=== PATIENT | female | born 1975 | race Caucasian/White ===

== ENCOUNTER 2016-07-12 08:39 | Emergency (ER) | payer BC ==
[2016-07-12] MEDS ORDERED: NS 500 ML IV ONE (08:45)
[2016-07-12] MEDS ORDERED: PANTOPRAZOLE SODIUM 80 MG in NS 100 ML IV ONE (08:46)
[2016-07-12 08:50] VITALS: O2SAT 100
--- NOTE | 2016-07-12 09:06 | EDPHY ---
H & P Time Seen by Provider: 07/12/16 08:46 HPI/ROS: HPI Black stools. Abdominal pain. 40-year-old female by private vehicle with her . This patient reports that she has had intermittent upper abdominal epigastric discomfort ongoing since April. Reports that she has had blackish stools intermittently for months. She has been working with homeopathic physician to try and figure out the source of her rectal bleeding. 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 She did have a endoscopy and colonoscopy about 2 years ago. No intervention since then. She is not coagulopathic. She is not on any anticoagulation or antiplatelet agents. She reports black stools last night and this morning. She does have a history of being treated for H pylori peptic ulcer disease years ago. ROS: Constitutional: No fever, no chills. No weakness. Eyes: No discharge. No changes in vision. ENT: No sore throat. No nasal congestion or rhinorrhea. Respiratory: No cough. No shortness of breath. Cardiac: No chest pain, no palpitations. Gastrointestinal: No abdominal pain, no vomiting, no diarrhea. Genitourinary: No hematuria. No dysuria or increased frequency with urination. Musculoskeletal: No back pain. No neck pain. No myalgias or arthralgias. Skin: No rashes. Neurological: No headache. No focal weakness or altered sensation. Past medical history: As above. Social history: Here with her . No alcohol. No smoking. Physical Exam: General Appearance: Alert, no distress. This patient is responding to questions appropriately and in full sentences. This patient appears well- hydrated and well-nourished. Eyes: Pupils equal and round no pallor or injection. No lid edema, erythema or injection. ENT, Mouth: Mucous membranes are moist. The pharyngeal tissues are unremarkable. No edema or swelling. No asymmetry suggestive of abscess. No erythema or exudates. Respiratory: There are no retractions, lungs are clear to auscultation with good air movement bilaterally. Cardiovascular: Regular rate and rhythm. No murmur. Gastrointestinal: Abdomen is soft with mild upper abdominal tenderness on palpation, no masses, bowel sounds normal. No focal tenderness at McBurney's point. No Mandel sign. Rectal exam: Normal tone. No bleeding fissures or hemorrhoids. Minimal dark brown stool in the rectal vault. No active hemorrhage. Stool sent for Hemoccult testing. Neurological: Motor sensory function is grossly intact. Cranial nerves are normal. Gait is normal. Skin: Warm and dry, no rashes. Musculoskeletal: Neck is supple and nontender. Extremities are symmetrical. All joints range without pain or impingement. Psychiatric: No agitation. No depression. Database: EKG: Imaging: Procedures: Emergency department course: IV placed. She was put on a cardiac cath rn. Vital signs reviewed. She was started on IV normal saline with 500 cc to be given over the next hour. I discussed given her IV Protonix. She has declined this medication initially. Appropriate blood work sent. 10:20 a.m., patient re-evaluated. Resting comfortably at this time. Results of blood work discussed with her and her . Her vital signs have been reviewed and are normal. Repeat abdominal exam she is soft, nontender and nondistended. She feels comfortable going home and I feel she is safe for discharge. I did discuss putting her on a proton pump inhibitor. She declines this medication. Plan will be to have her follow up with Gastroenterology for re-evaluation and likely an endoscopy, colonoscopy. She is in agreement with this plan. Return to emergency department precautions were thoroughly reviewed with her. All of her questions were answered. She was discharged in good condition. Hemoccult feces-negative. Differential Diagnosis: The differential diagnosis on this patient includes but is not limited to to upper versus lower gastrointestinal bleeding, peptic ulcer disease, diverticulosis, colonic polyps, coagulopathy. This represents a partial list of diagnoses considered. These considerations are based on history, physical exam, past history, reassessment and diagnostic testing. Constitutional: Initial Vital Signs Temperature (C) 36.7 C 07/12/16 08:41 Heart Rate 89 07/12/16 08:41 Respiratory Rate 07/12/16 08:41 Blood Pressure 122/65 H 07/12/16 08:41 O2 Sat (%) 100 07/12/16 08:41 O2 Delivery Mode Room Air Allergies/Adverse Reactions: antibiotics Allergy (Uncoded 07/12/16 08:53) dairy Allergy (Uncoded 07/12/16 08:54) wheat Allergy (Uncoded 07/12/16 08:54) Home Medications: Medication Instructions Recorded Herbals/Supplements -Info Only 07/12/16 Medical Decision Making - Data Points Laboratory Results: Laboratory Results 07/12/16 08:55 07/12/16 08:55 07/12/16 07/12/16 07/12/16 08:55 08:55 08:55 WBC RBC Hgb Hct MCV MCH MCHC RDW Plt Count MPV Neut % (Auto) Lymph % (Auto) [place] % (Auto) Eos % (Auto) Baso % (Auto) Nucleat RBC Rel Count Absolute Neuts (auto) Absolute Lymphs (auto) Absolute Monos (auto) Absolute Eos (auto) Absolute Basos (auto) Absolute Nucleated RBC Immature Gran % Immature Gran # PT INR APTT Sodium Potassium Chloride Carbon Dioxide Anion Gap BUN Creatinine Estimated GFR Glucose Calcium Total Bilirubin Conjugated Bilirubin Unconjugated Bilirubin AST ALT Alkaline Phosphatase Total Protein Albumin Lipase Beta HCG, Qual Stool Occult Bld Scrn NEGATIVE (NEGATIVE) H. pylori IgG Antibody NEGATIVE (NEG) Patient ABO/Rh A POSITIVE Antibody Screen NEGATIVE 07/12/16 07/12/16 07/12/16 08:55 08:55 08:55 WBC RBC Hgb Hct MCV MCH MCHC RDW Plt Count MPV Neut % (Auto) Lymph % (Auto) [place] % (Auto) Eos % (Auto) Baso % (Auto) Nucleat RBC Rel Count Absolute Neuts (auto) Absolute Lymphs (auto) Absolute Monos (auto) Absolute Eos (auto) Absolute Basos (auto) Absolute Nucleated RBC Immature Gran % Immature Gran # PT 13.7 SEC SEC (12.0-15.0) INR 1.06 (0.83-1.16) APTT 31.0 SEC SEC (23.0-38.0) Sodium 139 mEq/L mEq/L (134-144) Potassium 3.9 mEq/L mEq/L (3.5-5.2) Chloride 102 mEq/L mEq/L (97-110) Carbon Dioxide 22 mEq/l mEq/l (22-31) Anion Gap 15 mEq/L mEq/L (8-16) BUN 10 mg/dL mg/dL (7-23) Creatinine 0.7 mg/dL mg/dL (0.6-1.0) Estimated GFR > 60 Glucose 70 mg/dL mg/dL (70-100) Calcium 9.5 mg/dL mg/dL (8.5-10.4) Total Bilirubin 1.1 mg/dL mg/dL (0.1-1.4) Conjugated Bilirubin 0.5 mg/dL mg/dL (0.0-0.5) Unconjugated Bilirubin 0.6 mg/dL mg/dL (0.0-1.1) AST 21 IU/L IU/L (14-46) ALT 34 IU/L IU/L (9-52) Alkaline Phosphatase 80 IU/L IU/L (38-126) Total Protein 7.6 g/dL g/dL (6.3-8.2) Albumin 4.7 g/dL g/dL (3.5-5.0) Lipase 117.0 IU/L IU/L (23-300) Beta HCG, Qual NEGATIVE Stool Occult Bld Scrn H. pylori IgG Antibody Patient ABO/Rh Antibody Screen 07/12/16 08:55 WBC 4.26 10^3/uL 10^3/uL (3.80-9.50) RBC 5.04 10^6/uL 10^6/uL (4.18-5.33) Hgb 13.6 g/dL g/dL (12.6-16.3) Hct 42.2 % % (38.0-47.0) MCV 83.7 fL fL (81.5-99.8) MCH 27.0 pg L pg (27.9-34.1) MCHC 32.2 g/dL L g/dL (32.4-36.7) RDW 13.2 % % (11.5-15.2) Plt Count 271 10^3/uL 10^3/uL (150-400) MPV 11.1 fL fL (8.7-11.7) Neut % (Auto) 41.7 % % (39.3-74.2) Lymph % (Auto) 39.0 % % (15.0-45.0) [place] % (Auto) 8.5 % % (4.5-13.0) Eos % (Auto) 9.9 % H % (0.6-7.6) Baso % (Auto) 0.7 % % (0.3-1.7) Nucleat RBC Rel Count 0.0 % % (0.0-0.2) Absolute Neuts (auto) 1.78 10^3/uL 10^3/uL (1.70-6.50) Absolute Lymphs (auto) 1.66 10^3/uL 10^3/uL (1.00-3.00) Absolute Monos (auto) 0.36 10^3/uL 10^3/uL (0.30-0.80) Absolute Eos (auto) 0.42 10^3/uL H 10^3/uL (0.03-0.40) Absolute Basos (auto) 0.03 10^3/uL 10^3/uL (0.02-0.10) Absolute Nucleated RBC 0.00 10^3/uL 10^3/uL (0-0.01) Immature Gran % 0.2 % % (0.0-1.1) Immature Gran # 0.01 10^3/uL 10^3/uL (0.00-0.10) PT INR APTT Sodium Potassium Chloride Carbon Dioxide Anion Gap BUN Creatinine Estimated GFR Glucose Calcium Total Bilirubin Conjugated Bilirubin Unconjugated Bilirubin AST ALT Alkaline Phosphatase Total Protein Albumin Lipase Beta HCG, Qual Stool Occult Bld Scrn H. pylori IgG Antibody Patient ABO/Rh Antibody Screen Medications Given: Discontinued Medications Sodium Chloride (Ns) 500 mls @ 0 mls/hr IV ONCE ONE PRN Reason: Wide Open Stop: 07/12/16 08:46 Last Admin: 07/12/16 09:08 Dose: 500 mls Pantoprazole Sodium 80 mg/ (Sodium Chloride) 100 mls @ 200 mls/hr IV EDNOW ONE Stop: 07/12/16 09:15 Last Admin: 07/12/16 10:11 Dose: Not Given Departure - Departure Disposition: Home, Routine, Self-Care Clinical Impression: Dark stools, Abdominal pain Condition: Good Instructions: Chronic Abdominal Pain (ED), Abdominal Pain (ED) Additional Instructions: Read and follow provided instructions. Follow-up with Gastroenterology as discussed for an endoscopy colonoscopy and further evaluation. Call on Thursday morning for appointment. Explained this is for an emergency department follow-up. Return to the emergency department immediately for worsening abdominal pain, fever, vomiting, rectal bleeding or other serious concerns. Referrals: Edward Ventura MD, FACG [Medical Doctor] - As per Instructions
[2016-07-12 09:30] LABS: % IMMATURE GRANULYOCYTES 0.2 % (0.0-1.1); ABSOLUTE IMMATURE GRANULOCYTES 0.01 10^3/uL (0.00-0.10); ADD DIFF? NO; ADD MORPH? NO; ADD SCAN? NO; ATYPICAL LYMPHOCYTE FLAG 30 (0-99); FRAGMENT RBC FLAG 0 (0-99); HEMATOCRIT 42.2 % (38.0-47.0); HEMOGLOBIN 13.6 g/dL (12.6-16.3); LEFT SHIFT FLG 0 (0-99); LIPEMIA HEMOLYSIS FLAG 80 (0-99); MEAN CELL HEMOGLOBIN CONCENTR. 32.2 g/dL (32.4-36.7); MEAN CELL VOLUME 83.7 fL (81.5-99.8); MEAN PLATELET VOLUME 11.1 fL (8.7-11.7); PLATELET CLUMPS FLAG 0 (0-99); PLATELET COUNT 271 10^3/uL (150-400); RED BLOOD CELL COUNT 5.04 10^6/uL (4.18-5.33); RED CELL DISTRIBUTION WIDTH 13.2 % (11.5-15.2)
[2016-07-12 10:00] LABS: ALANINE AMINOTRANSFERASE 34 IU/L (9-52); ALBUMIN 4.7 g/dL (3.5-5.0); ALKALINE PHOSPHATASE 80 IU/L (38-126); ANION GAP 15 mEq/L (8-16); ASPARTATE AMINOTRANSFERASE 21 IU/L (14-46); BILIRUBIN,TOTAL 1.1 mg/dL (0.1-1.4); BILIRUBIN-CONJUGATED 0.5 mg/dL (0.0-0.5); BILIRUBIN-UNCONJUGATED 0.6 mg/dL (0.0-1.1); CALCIUM 9.5 mg/dL (8.5-10.4); CARBON DIOXIDE 22 mEq/l (22-31); CHLORIDE 102 mEq/L (97-110); CREATININE 0.7 mg/dL (0.6-1.0); GLOMERULAR FILTRATION RATE > 60; GLUCOSE 70 mg/dL (70-100); POTASSIUM 3.9 mEq/L (3.5-5.2); SODIUM 139 mEq/L (134-144); TOTAL PROTEIN 7.6 g/dL (6.3-8.2)
[2016-07-12 10:04] LABS: INR 1.06 (0.83-1.16); PROTIME(PATIENT) 13.7 SEC (12.0-15.0)
[2016-07-12 10:47] VITALS: BP 116/72; PULSE 82; RESP 16; TEMP 97.9
== END 2016-07-12 10:46 | disposition home or self-care (01) ==
DX: R10.10 Upper abdominal pain, unspecified (principal); R19.5 Other fecal abnormalities